=== PATIENT | female | born 1985 | race Caucasian/White ===

== ENCOUNTER 2018-05-23 00:04 | Inpatient (IN) | payer OTHER ==
[~2018-05-23] VITALS: Ht 165.1 cm; Wt 83.0 kg
[~2018-05-23 00:04] MED LIST: NORE-74 PO
[2018-05-23] MEDS ORDERED: NEWBORN KIT ONE (00:53)
[2018-05-23] MEDS ORDERED: OXYTOCIN 30U/ 0.9% NaCL 500ML 500 ML IV PRN (00:57)
[2018-05-23] MEDS ORDERED: OXYTOCIN 30U/ 0.9% NaCL 500ML 500 ML IV ONE (00:57)
[2018-05-23] MEDS ORDERED: METOCLOPRAMIDE 5 MG/ML, 2ML IVPush PRN (01:00)
[2018-05-23] MEDS ORDERED: FENTANYL PF 100 MCG/2ML IV PRN (01:00)
[2018-05-23] MEDS ORDERED: FENTANYL PF 100 MCG/2ML IVPush PRN (01:00)
[2018-05-23] MEDS ORDERED: ONDANSETRON 2MG/ML, 2ML IVPush PRN (01:00)
[2018-05-23] MEDS ORDERED: SODIUM CITRATE/CITRIC ACID 30 ML UDC PO PRN (01:00)
[2018-05-23 01:25] LABS: BASOPHILS # (AUTO) 0.04 x10^3/uL (0-0.1); BASOPHILS % (AUTO) 0 % (0-1); EOSINOPHILS # (AUTO) 0.15 x10^3/uL (0-0.4); EOSINOPHILS % (AUTO) 1 % (1-7); LYMPHOCYTES # (AUTO) 2.47 x10^3/uL (1-3.4); LYMPHOCYTES % (AUTO) 20 % (22-44); MD NO; MEAN CORPUSCULAR HEMOGLOBIN 30.9 pg (27.0-34.8); MEAN CORPUSCULAR HGB CONC 33.9 g/dL (32.4-35.8); MEAN CORPUSCULAR VOLUME 91.3 fL (80-100); MEAN PLATELET VOLUME 9.3 fL (7.4-10.4); MONOCYTES % (AUTO) 5 % (2-9); NEUTROPHILS % (AUTO) 74 % (42-75); PLATELET COUNT 234 x10^3/uL (130-400); RED BLOOD COUNT 4.36 x10^6/uL (3.82-5.3); RED CELL DISTRIBUTION WIDTH 13.4 % (9.6-15.2)
[2018-05-23 01:36] LABS: ALBUMIN 2.3 g/dL (3.4-5.0); ANION GAP 8 mmol/L (5-15); CALCIUM 8.1 mg/dL (8.5-10.1); CHLORIDE 109 mmol/L (98-107)
[2018-05-23 01:38] LABS: ALANINE AMINOTRANSFERASE 23 U/L (12-78); ALKALINE PHOSPHATASE 243 U/L (45-117); BILIRUBIN, DIRECT < 0.1 mg/dL (0.1-0.2); BILIRUBIN,TOTAL 0.2 mg/dL (0.2-1.0); CREATININE 0.67 mg/dL (0.55-1.02); TOTAL PROTEIN 6.7 g/dL (6.4-8.2)
[2018-05-23] MEDS ORDERED: OXYTOCIN 30U/ 0.9% NaCL 500ML 500 ML ONE ×2 (04:54→20:43)
[2018-05-23 08:02] VITALS: BP 139/93
[2018-05-23] MEDS ORDERED: ONDANSETRON 2MG/ML, 2ML ONE (11:00)
[2018-05-23] MEDS: LACTATED RINGERS 1,000 ML IV SCH ×3 (11:04→14:39)
[2018-05-23] MEDS ORDERED: MISOPROSTOL 200 MCG TABLET ONE (11:15)
[2018-05-23] MEDS ORDERED: LIDOCAINE 1%, 20ML ONE (11:15)
[2018-05-23] MEDS ORDERED: FENTANYL PF 100 MCG/2ML ONE ×2 (13:18→13:35)
[2018-05-23] MEDS ORDERED: BUPIVACAINE 0.25% ONE (13:35)
[2018-05-23] MEDS ORDERED: FENTANYL PF 500 MCG, BUPIVACAINE/PF 0.5%, 30ML 62.5 ML in SODIUM CHLORIDE 0.9% 177.5 ML EPIDCONT SCH (14:00)
[2018-05-23] MEDS ORDERED: D5%-LACTATED RINGERS 1,000 ML IV SCH (18:06)
[2018-05-24] MEDS: OXYTOCIN 30U/ 0.9% NaCL 500ML 500 ML IV SCH ×3 (00:07→20:07)
[2018-05-24] MEDS ORDERED: OXYTOCIN 30U/ 0.9% NaCL 500ML 500 ML ONE (00:19)
[2018-05-24] MEDS ORDERED: MISOPROSTOL 200 MCG TABLET PR PRN (00:30)
[2018-05-24] MEDS ORDERED: ACETAMINOPHEN 325 MG TABLET PO PRN (00:30)
[2018-05-24] MEDS ORDERED: OXYcodone/APAP 5/325MG TABLET PO PRN ×2 (00:30)
[2018-05-24] MEDS ORDERED: ONDANSETRON 2MG/ML, 2ML IV PRN (00:30)
[2018-05-24] MEDS ORDERED: METHYLERGONOVINE 0.2 MG/ML IM PRN (00:30)
[2018-05-24 02:00] VITALS: BP 118/72
[2018-05-24 05:50] VITALS: BP 125/78
[2018-05-24 08:02] LABS: MEAN CORPUSCULAR HEMOGLOBIN 30.7 pg (27.0-34.8); MEAN CORPUSCULAR HGB CONC 33.9 g/dL (32.4-35.8); MEAN CORPUSCULAR VOLUME 90.6 fL (80-100); MEAN PLATELET VOLUME 9.8 fL (7.4-10.4); PLATELET COUNT 207 x10^3/uL (130-400); RED BLOOD COUNT 4.08 x10^6/uL (3.82-5.3); RED CELL DISTRIBUTION WIDTH 12.9 % (9.6-15.2)
[2018-05-24 08:15] VITALS: BP 114/69
[2018-05-24 08:28] LABS: BASOPHILS # (AUTO) 0.06 x10^3/uL (0-0.1); BASOPHILS % (AUTO) 0 % (0-1); EOSINOPHILS # (AUTO) 0.02 x10^3/uL (0-0.4); EOSINOPHILS % (AUTO) 0 % (1-7); LYMPHOCYTES # (AUTO) 2.57 x10^3/uL (1-3.4); LYMPHOCYTES % (AUTO) 14 % (22-44); MD SCAN; MONOCYTES # (AUTO) 0.55 x10^3/uL (0.2-0.8); MONOCYTES % (AUTO) 3 % (2-9); NEUTROPHILS # (AUTO) 15.11 x10^3/uL (1.8-6.8); NEUTROPHILS % (AUTO) 83 % (42-75)
[2018-05-24] MEDS: PRENATAL VIT/IRON/FA 1 EACH TABLET PO SCH (08:30)
[2018-05-24] MEDS: DOCUSATE 100 MG CAPSULE PO PRN (08:30)
[2018-05-24 12:00] VITALS: BP 138/88
[2018-05-24] MEDS ORDERED: DIPH,PERTUSS(ACELL),TET VAC/PF NC IM-VACC ONE (14:30)
[2018-05-24] MEDS: IBUPROFEN 600 MG TABLET PO PRN (15:42)
[2018-05-24 16:00] VITALS: BP 134/90
[2018-05-24 20:15] VITALS: BP 135/92
[2018-05-25] MEDS: IBUPROFEN 600 MG TABLET PO PRN ×2 (02:00→13:48)
[2018-05-25 07:10] VITALS: BP 137/86
[2018-05-25] MEDS: PRENATAL VIT/IRON/FA 1 EACH TABLET PO SCH (09:28)
[2018-05-25] MEDS: DOCUSATE 100 MG CAPSULE PO PRN (09:28)
[2018-05-25] MEDS ORDERED: IBUP-1222 PO (11:09)
[2018-05-25] MEDS ORDERED: LIDOCAINE/PF 1.5%-EPI 1:200K, 30ML ONE (14:10)
== END 2018-05-25 14:57 | disposition home or self-care (01) | DRG 807 ==
LOC: LDOP 00:04 → LDIP 00:48 → 2NW 05-24 01:41
PROVIDERS: ADMIT Obstetrics & Gynecology; ATTEND Obstetrics & Gynecology
PROC: 10E0XZZ Delivery of Products of Conception, External Approach (ICD-10-PCS; principal; 2018-05-23)
PROC: 3E0R3BZ Introduction of Anesthetic Agent into Spinal Canal, Percutaneous Approach (ICD-10-PCS; 2018-05-23)
PROC: 00HU33Z Insertion of Infusion Device into Spinal Canal, Percutaneous Approach (ICD-10-PCS; 2018-05-23)
DX: O42.913 Preterm premature rupture of membranes, unspecified as to length of time between rupture and onset of labor, third trimester (principal); Z37.0 Single live birth; Z3A.36 36 weeks gestation of pregnancy
CPT/HCPCS: 36415; 99285; J7121; 80053; 82248; 84550; 85025; 86850; 86900; 89060; 90715; G0378; J2405; J3010; J3490; J2590; J7050; J7120; Q0114